=== PATIENT | female | born 2005 | race Two or more races ===

== ENCOUNTER 2024-01-21 11:08 | Inpatient (IN) | payer BC ==
[2024-01-21] MEDS ORDERED: Water For Irrigation,Sterile 1,000 ML Container IRR PRN (13:36)
[2024-01-21] MEDS ORDERED: Tranexamic Acid IN NACL,ISO-OS 1,000 MG in Premix Bag 1 BAG IV PRN (13:36)
[2024-01-21] MEDS ORDERED: Terbutaline 1 MG/ML SDV SUBCUT PRN (13:36)
[2024-01-21] MEDS ORDERED: Sodium Chloride 0.9% 20 ML SDV IV PRN (13:36)
[2024-01-21] MEDS ORDERED: Sodium Chloride 0.9% 2.5 ML Syringe FLUSH PRN (13:36)
[2024-01-21] MEDS ORDERED: Lidocaine 1% 50 ML MDV INJECT PRN (13:36)
[2024-01-21] MEDS ORDERED: Carboprost Tromethamine 250 MCG/1 mL Vial IM PRN (13:36)
[2024-01-21] MEDS ORDERED: Misoprostol 200 MCG Tab PO PRN (13:36)
[2024-01-21] MEDS ORDERED: Methylergonovine 0.2 MG/1 ML Amp IM PRN (13:36)
[2024-01-21] MEDS ORDERED: Sodium Chloride 0.9% 10 ML Syringe FLUSH PRN (13:36)
[2024-01-21] MEDS ORDERED: Oxytocin/0.9 % Sodium Chloride 30 UNIT/500 ML BAG IV SCH (13:45)
[2024-01-21 14:44] LABS: HEMATOCRIT 36.5 % (37.0-47.0); HEMOGLOBIN 12.1 g/dL (12.0-16.0); MEAN CORPUSCULAR HGB CONC 33.2 g/dL (32.0-36.0); MEAN CORPUSCULAR VOLUME 87.5 fL (83.0-99.0); MEAN PLATELET VOLUME 12.5 fL (9.4-12.3); PLATELET COUNT,PLT 270 K/uL (150-400); RED BLOOD CELL COUNT 4.17 M/uL (4.10-5.30); WHITE BLOOD CELL COUNT,WBC 12.67 K/uL (4.5-13.5)
[2024-01-21] MEDS: Misoprostol 25 MCG (1/4 of 100 MCG) Tab VAG PRN ×2 (15:37→21:30)
[2024-01-21] MEDS: Butorphanol 2 MG/ML SDV IVPUSH PRN (23:55)
[2024-01-22] MEDS: Lactated Ringers 1,000 ML IV SCH (01:25)
[2024-01-22] MEDS: Ondansetron 4 MG/2 ML SDV IVPUSH PRN (05:11)
[2024-01-22] MEDS ORDERED: Ropivacaine HCl/PF 200 ML ONE (05:40)
[2024-01-22] MEDS ORDERED: Phenylephrine HCl In 0.9% NaCl 1 MG/10 ML Syringe ONE (05:40)
[2024-01-22] MEDS ORDERED: Bupivacaine 0.5% 10 ML SDV ONE (05:40)
[2024-01-22] MEDS ORDERED: ePHEDrine 50 MG/ML SDV IVPUSH PRN (06:03)
[2024-01-22] MEDS ORDERED: Bupivacaine 0.5% 10 ML SDV INJECT ONE (06:04)
[2024-01-22] MEDS: Phenylephrine HCl In 0.9% NaCl 1 MG/10 ML Syringe IVPUSH PRN (06:08)
[2024-01-22] MEDS ORDERED: dexmedeTOMIDine HCl 200 MCG/2 ML SDV EPIDUR SCH (06:15)
[2024-01-22] MEDS: ePHEDrine 50 MG/ML SDV IM PRN (06:24)
[2024-01-22] MEDS: Ropivacaine HCl/PF 400 MG in Premix Bag 1 BAG EPIDUR SCH (06:28)
[2024-01-22] MEDS: Oxytocin/0.9 % Sodium Chloride 30 UNIT/500 ML BAG IV SCH (08:13)
[2024-01-22] MEDS ORDERED: Lanolin 100% Cream 7 GM Tube TOP PRN (15:07)
[2024-01-22] MEDS ORDERED: Aluminum Hydroxide/Magnesium Hydroxide/Simethicone Susp 30 ML Cup PO PRN (15:07)
[2024-01-22 15:28] LABS: PH,UMBILICAL ARTERIAL 7.205 (7.18-7.38); PH,UMBILICAL VENOUS 7.188 (7.25-7.45)
[2024-01-22] MEDS: Ibuprofen 800 MG Tab PO PRN (17:19)
[2024-01-22] MEDS: Docusate Sodium 100 MG Cap PO PRN (21:34)
[2024-01-22] MEDS: Simethicone 80 MG Tab.Chew PO PRN (21:34)
[2024-01-23 05:55] LABS: BASOPHILS ABSOLUTE AUTO 0.03 K/uL (0.00-0.30); BASOPHILS PERCENT AUTO 0.2 % (0.0-1.0); EOSINOPHILS ABSOLUTE AUTO 0.08 K/uL (0.00-0.70); EOSINOPHILS PERCENT AUTO 0.5 % (0.0-5.0); HEMATOCRIT 32.3 % (37.0-47.0); HEMOGLOBIN 10.6 g/dL (12.0-16.0); IMMATURE GRAN PERCENT AUTO 0.6 % (0.0-0.4); LYMPHOCYTES ABSOLUTE AUTO 2.45 K/uL (2.00-8.80); LYMPHOCYTES PERCENT AUTO 15.9 % (50.0-65.0); MEAN CORPUSCULAR HEMOGLOBIN 28.9 pg (28.0-32.0); MEAN CORPUSCULAR HGB CONC 32.8 g/dL (32.0-36.0); MEAN PLATELET VOLUME 11.9 fL (9.4-12.3); MONOCYTES ABSOLUTE AUTO 1.31 K/uL (0.10-1.40); MONOCYTES PERCENT AUTO 8.5 % (2.0-10.0); NEUTROPHILS ABSOLUTE AUTO 11.43 K/uL (1.50-8.50); NEUTROPHILS PERCENT AUTO 74.3 % (35.0-45.0); PLATELET COUNT,PLT 215 K/uL (150-400); RED BLOOD CELL COUNT 3.67 M/uL (4.10-5.30)
[2024-01-23] MEDS: Acetaminophen 500 MG Tab PO PRN (13:36)
[2024-01-23] MEDS: Witch Hazel Medicated Pads 40/Jar TOP PRN (17:25)
[2024-01-23] MEDS: Benzocaine/Menthol 20%-0.5% Spray 78 GM Cannister TOP PRN (17:25)
== END 2024-01-23 18:10 | disposition home or self-care (01) | DRG 560 ==
LOC: MW.OBCHECK 11:08 → MW.OB 11:49 → MW.OBCHECK 11:49 → MW.OB 13:37 → MW.OBCHECK 13:37 → MW.OB 13:37 → OBSVTOIN 01-22 15:07 → MW.OB 01-22 18:11
PROVIDERS: ADMIT Obstetrics & Gynecology; ATTEND Obstetrics & Gynecology Obstetrics
PROC: 10E0XZZ Delivery of Products of Conception, External Approach (ICD-10-PCS; principal; 2024-01-22)
PROC: 3E0P7VZ Introduction of Hormone into Female Reproductive, Via Natural or Artificial Opening (ICD-10-PCS; 2024-01-22)
PROC: 3E033VJ Introduction of Other Hormone into Peripheral Vein, Percutaneous Approach (ICD-10-PCS; 2024-01-22)
PROC: 0KQM0ZZ Repair Perineum Muscle, Open Approach (ICD-10-PCS; 2024-01-22)
PROC: 3E0R3BZ Introduction of Anesthetic Agent into Spinal Canal, Percutaneous Approach (ICD-10-PCS; 2024-01-22)
PROC: 00HU33Z Insertion of Infusion Device into Spinal Canal, Percutaneous Approach (ICD-10-PCS; 2024-01-22)
DX: O48.0 Post-term pregnancy (principal); Z37.0 Single live birth; O70.1 Second degree perineal laceration during delivery; O99.02 Anemia complicating childbirth; Z3A.40 40 weeks gestation of pregnancy
CPT/HCPCS: 01967; 36415; 51702; 59025; 59409; 82803; 85025; 85027; 86592; 86850; 86900; 86901; A9270-GY; J0595; J0665; J2371; J2405; J2590; J2795; J3490; J7120